=== PATIENT | male | born 1960 | race Caucasian/White ===

== ENCOUNTER 2017-07-24 14:57 | Outpatient (CLI) | payer OTHER ==
[2017-07-24] MEDS ORDERED: IOPAMIDOL-300 100 ML VIAL ONE (15:17)
[2017-07-24] MEDS ORDERED: IOPAMIDOL-300 100 ML VIAL IVP ONE (15:56)
--- NOTE | 2017-07-25 11:28 | CT Report ---
ABDOMEN AND PELVIS CT WITH AND WITHOUT CONTRAST: 07/24/2017 COMPARISON: No comparison. INDICATION: Painful bladder spasm. TECHNIQUE: Axial imaging of the abdomen and pelvis was performed with coronal and sagittal reformats. 100 mL Omnipaque Isovue-300. FINDINGS: There is a 4 mm solid pulmonary nodule of the left lower lobe. There are two 2 mm nodules of the left lower lobe. There is a 6 mm low attenuating focus in the left lobe of the liver, too small to characterize. The liver, spleen, pancreas, and adrenal glands appear otherwise unremarkable. No evidence of urologic stones. No contour deforming masses. Normal appearing intravenous pyelography via CT. No bladder masses. No abnormality of bowel. No abnormal fluid collection or free air. Vessels appear unremarkable. There are no bone lesions. IMPRESSION: 1. THERE ARE NO CT FINDINGS TO SUGGEST A CAUSE OF THE PATIENT'S SYMPTOMS. 2. PULMONARY NODULES MEASURE UP TO 4 MM. NO FURTHER FOLLOWUP IS REQUIRED IN A LOW RISK PATIENT. IF THE PATIENT HAS RISK FACTORS, FOLLOWUP IS SUGGESTED IN 6-[address] DOSE REDUCTION STATEMENT In accordance with CT protocol optimization, one or more of the following dose reduction techniques were utilized for this exam: automated exposure control, adjustment of mA and/or KV based on patient size, or use of iterative reconstructive technique. TD: 07/25/2017 11:27 MTDD
== END 2017-07-24 14:58 | disposition home or self-care (01) ==
LOC: DI 14:57
PROVIDERS: ATTEND Family Medicine
DX: R39.89 Other symptoms and signs involving the genitourinary system (principal); R91.8 Other nonspecific abnormal finding of lung field
CPT/HCPCS: 74178; Q9967

== ENCOUNTER 2017-09-16 10:43 | Day surgery (SDC) | payer OTHER ==
[2017-09-16] MEDS ORDERED: LACTATED RINGERS 1,000 ML IV ONE ×3 (10:51→17:15)
[2017-09-16] MEDS ORDERED: ceFAZolin 2 GM/50 ML 2 GM/50 ML BAG IV ONE (11:02)
[2017-09-16] MEDS ORDERED: BUPIVACAINE 0.5% PF 30 ML VIAL INFIL ONE ×2 (14:19→16:56)
[2017-09-16] MEDS ORDERED: BUPIVACAINE 0.5% PF 30 ML VIAL ONE (16:58)
[2017-09-16] MEDS ORDERED: BUPIVACAINE 0.5%-EPI 1:200000 PF 30 ML VIAL ONE (16:58)
[2017-09-16] MEDS ORDERED: fentaNYL 100 MCG/2 ML VIAL IVP ONE (17:10)
[2017-09-16] MEDS ORDERED: PROPOFOL 200 MG/20 ML VIAL IVP ONE (17:10)
[2017-09-16] MEDS ORDERED: ROCURONIUM 50 MG/5 ML VIAL IVP ONE (17:10)
[2017-09-16] MEDS ORDERED: ONDANSETRON 4 MG/2 ML VIAL IVP ONE (17:10)
[2017-09-16] MEDS ORDERED: ePHEDrine 50 MG/ML VIAL IVP ONE (17:10)
[2017-09-16] MEDS ORDERED: GLYCOPYRROLATE 1 MG/5 ML VIAL IVP ONE (17:10)
[2017-09-16] MEDS ORDERED: KETOROLAC 30 MG/ML VIAL IVP ONE (17:10)
[2017-09-16] MEDS ORDERED: MIDAZOLAM 2 MG/2 ML VIAL IVP ONE (17:10)
[2017-09-16] MEDS ORDERED: NEOSTIGMINE 1 MG/1 ML 10 ML MDV IVP ONE (17:10)
--- NOTE | 2017-09-16 17:49 | OPERATIVE REPORT ---
Operative Report - General Procedure Date: 09/16/17 Planned Procedure: LEFT TEP inguinal herniorrhaphy Pre-Op Diagnosis: LEFT inguinal hernia Procedure Performed: LEFT TEP inguinal herniorrhaphy Post Op Diagnosis: Indirect LEFT inguinal hernia - Procedure Note Primary Surgeon: Jf Serrato MD Anesthesia Provider: Catalino John CRNA Anesthesia Technique: General LMA, Local (30 mL 1/2% marcaine) IV Fluids (mL): 1,200 Estimated Blood Loss (mL): 5 Urine Output (mL): 100 Complications: None. - Other Other Information/Narrative: OPERATIVE DESCRIPTION/REPORT: After verbal and written informed consent was obtained detailing the risks of infection, bleeding requiring transfusion with its risks, nerve injury, and , and after I met with the patient confirming the surgery and the site of the surgery, the patient was brought to the operative suite and placed supine on the operating table. Great care was taken to avoid pressure points to prevent pressure necrosis or nerve injury. Monitoring devices were applied along with TEDs and pneumatic compressive stockings (to prevent DVT). The patient received preoperative antibiotics for surgical prophylaxis. Manjula John sedated and induced general anesthesia and provided anesthesia care for the entirety of the case. The patient was prepped and draped in the usual sterile manner. With the patient draped my initials were clearly visible. A "time in" then confirmed that the patient was identified with 3 identifiers ( name, date and medical record number), the history and physical was in the chart, the signed consent confirming the procedure was in the chart, the patient was in the correct position, the aforementioned prophylactic measures were in place or given, we had the correct personnel and equipment to complete the procedure and that anesthesia, surgery and nursing were given an opportunity to express any concerns. With the agreement of everyone in the room , we proceeded with the operation. A transverse skin incision was made below the umbilicus to a length of approximately 3 cm. The incision was carried through the subcutaneous tissue. Bleeders were cauterized. The right rectus sheath was identified and incised lateral to the midline. The preperitoneal space was then developed following insertion of a Spacemaker balloon, which was inflated under direct vision. Following removal of the Spacemaker balloon, a #10 trocar was placed in the preperitoneal space and the preperitoneal space was insufflated with CO2 to a steady state pressure of 12 mmHg. A 10 mm 30 degree laparoscope was inserted in the preperitoneal space. Two #5 trocars were placed 5 cm below the umbilicus and just medial to the epigastric vessels bilaterally under direct vision and without incident. Landmarks including symphysis pubis, right and left Reinier ligaments and right and left inferior epigastric vessels were identified. Dissection was then continued lateral to the transverse abdominis muscle bilaterally. The internal ring was then explored for the presence of the indirect hernia sac and this was reduced under direct vision with traction and counter-traction. Exploration of the medial space did not show a medial defect suggesting no direct hernia. A Covidien Progrip LEFT anatomical mesh ([id number]#[id number], Ref# [id number], Use by 2020-04-10) was obtained and placed. The mesh covered the internal ring as well as any potential direct hernia site. No tacking was required. Please note that upon visual examination no definite direct or indirect hernia was seen on the right side. 10 mL of 1/2% Marcaine was injected into the preperitoneal space and then remaining 20 mL at all three incisions. The preperitoneal space was then deflated and during the deflation the mesh was watched to ensure that it was sandwiched nicely in place and did not change position. All trocars were withdrawn. The defect in the rectus sheath was closed with a [id number] 0 Vicryl suture. The skin incisions were closed with subcuticular 4-0 Monocryl suture. The prep was washed off and Mastisol and Steristrips were applied at all the incisions. At this point a time out was performed that confirmed that all the counts were correct, the procedure that was performed, the blood loss, the IV fluids administered, and the patients condition. The prep was washed off and Benzoin and Steristrips were applied. Having tolerated the procedure well, the patient was subsequently extubated and taken to recovery room in good and stable condition.
[2017-09-16] MEDS ORDERED: fentaNYL 100 MCG/2 ML VIAL ONE (18:04)
[2017-09-16] MEDS ORDERED: oxyCOD/ACETAMIN 5 MG/325 MG TABLET PO ONE (18:53)
[2017-09-16 18:57] VITALS: BP 115/78
== END 2017-09-16 10:44 | disposition home or self-care (01) ==
LOC: SDS 10:43
PROVIDERS: ATTEND Surgery
PROC: 0YU64JZ Supplement Left Inguinal Region with Synthetic Substitute, Percutaneous Endoscopic Approach (ICD-10-PCS; principal; 2017-09-16 12:00)
DX: K40.90 Unilateral inguinal hernia, without obstruction or gangrene, not specified as recurrent (principal)
CPT/HCPCS: 49650; A9270; J0690; J7120

== ENCOUNTER 2018-06-04 07:43 | Outpatient (CLI) | payer OTHER ==
--- NOTE | 2018-06-04 14:21 | MRI Report ---
Reason: LOW BACK PAIN Procedure Date: 06/04/2018 Accession Number: [id number] / [id number] Procedure: MRI - Lumbar Spine W/O CPT Code: FULL RESULT: EXAM: MRI LUMBAR SPINE WITHOUT CONTRAST EXAM DATE: 06/04/2018 08:22 AM. CLINICAL HISTORY: LOW BACK PAIN. COMPARISON: IVP 07/24/2017 3:49 PM. TECHNIQUE: Multiplanar, multisequence T1-weighted and fluid-sensitive sequences of the lumbar spine from T12 to S1 without contrast. Other: None. FINDINGS: Spinal Canal: The conus terminates at L1. The conus medullaris and cauda equina are unremarkable. Alignment: No scoliosis or spondylolisthesis. Bone Marrow: Five [id number] lumbar vertebral bodies are assumed. Previous partial laminectomy and partial right facetectomy at L5-S1. Mild chronic L1 superior endplate compression fracture without associated marrow edema. L1 vertebral body hemangioma 1.5 cm in diameter. 1.2 cm intermediate T1 and T2 signal lesion at the right inferior L4 level with deficiency at the endplate. Surrounding severe marrow edema with loss of T1 fatty signal involving the right half of the mid and lower portions of the vertebral body. Possible acute Schmorl's node. Disk Levels/Facets: T12-L1: Unremarkable. L1-L2: Unremarkable. L2-L3: Slight annular disk bulge. No significant stenosis. L3-L4: Slight annular disk bulge and mild facet arthropathy. Mild inferior foraminal narrowing. L4-L5: Mild disk height loss and dehydration. Annular disk bulge with small central protrusion and annular fissure. Mild facet arthropathy. Mild effacement of the thecal sac. Mild bilateral foraminal stenosis. L5-S1: Moderate disk height loss and dehydration. Annular disk bulge. Small foraminal osteophytes. Moderate left facet arthropathy. Mild bilateral foraminal stenosis. Musculature: Some asymmetric atrophy at the inferior right paraspinous musculature. Other: The partially visualized retroperitoneum is unremarkable. IMPRESSION: 1. Severe marrow edema involving the mid and lower right half of the L4 vertebral body with associated inferior endplate deformity. Suspicious for acute Schmorl's node. 2. Mild bilateral foraminal stenosis at L4-L5 and L5-S1. 3. Mild chronic-appearing superior endplate compression deformity at L1. Comment: The following findings are so common in adults without low back pain that while we report their presence, they must be interpreted with caution and in the context of the clinical situation. (Reference Ciscok et al, Spine 2001) Prevalence of findings in patients without low back pain: Disk degeneration (any evidence): 92% Disk desiccation/T2 signal loss: 83% Disk height loss: 56% Disk bulge: 64% Disk protrusion: 32% Annular tear/high intensity zone: 38% RADIA
== END 2018-06-04 07:44 | disposition home or self-care (01) ==
LOC: DI 07:43
PROVIDERS: ATTEND Physical Medicine & Rehabilitation
DX: M51.36 Other intervertebral disc degeneration, lumbar region (principal); M48.061 Spinal stenosis, lumbar region without neurogenic claudication; M47.9 Spondylosis, unspecified; M51.37 Other intervertebral disc degeneration, lumbosacral region; M48.07 Spinal stenosis, lumbosacral region; M48.56XA Collapsed vertebra, not elsewhere classified, lumbar region, initial encounter for fracture
CPT/HCPCS: 72148

== ENCOUNTER 2019-07-06 09:15 | Outpatient (CLI) | payer OTHER ==
[2019-07-06 09:57] VITALS: BP 139/95
--- NOTE | 2019-07-06 09:57 | SLEEP CARE CONSULTATION ---
Information from patient questionnaire entered by Kitty Ribera. I have reviewed and concur with the information entered by Kitty Ribera. This document represents the service I personally performed and the decisions made by me, Courtney Kimball MD, [facility]. History of Present Illness Reason for Visit: New patient Chief Complaint: reports: Unrefreshed sleep, Excessive daytime sleepiness, Observed pauses in breathing Duration of Symptoms: 5+ years Usual bedtime: 2200 Time it takes to fall asleep: 10 minutes Snores at night: Yes (if sleep on back) Observed to quit breathing while asleep: No Sleeps alone due to snoring: No Number of times waking at night: 5-8 Reasons for waking at night: reports: Choking, Gasping for air Toss, Turn, or Twitch while sleeping: Yes Recalls having dreams: Yes Usually gets out of bed at: 0645 Feels refreshed in the morning: No Morning headache: Yes Sleepy or fatigued during the day: Yes Ever fallen asleep while driving: Yes Dreams during day naps: No Prior sleep studies: No Additional HPI information: I had the pleasure of seeing Mr. Melo today regarding the possibility of him having a sleep disorder. As you know, he is a 59 year old gentleman who complains of unrefreshed sleep, excessive daytime sleepiness, and witnessed apneas. The patient tells me that he normally goes to bed around 10 pm, and it takes him approximately 10 minutes to fall asleep. He has been told that he snores loudly and irregularly at night. He has also been observed to stop breathing in his sleep. His can still sleep in the same bed. He can recall waking up on the average of 5 - 8 times during the night. Most of the time he wakes up because of his own snoring, choking, and having to gasp for air, especially on his back. There is a lot of tossing and turning in his sleep. No somniloquy (sleep talking) or somnambulism (sleep walking). Generally he can recall having dreams. In the morning he usually gets up out of the bed around 6:45 a.m. not feeling refreshed nor rested. He usually does have a morning headache that requires medication. During the day he complains of feeling sleepy and fatigued. His score on [place] Sleepiness Scale is 18 out of 24. He has fallen asleep while driving. He usually does not take naps during the day. Upon falling asleep during the day he denies having vivid dreams. He has never had sleep paralysis, experienced cataplexy or symptoms of restless leg syndrome. He denies having impaired concentration during the day. Subjective Initial [place] Sleepiness Scale score: 18 Past Medical History Past Medical History: reports: Other (migraines) Social History The patient's occupation is a [employer]. Patient is and lives in [place]. Have you smoked in the past 12 months: No Alcohol use: Yes Alcohol amount and frequency: 1-2, 1-2 times/week Caffeine use: Yes Caffeine amount and frequency: each morning Allergies and Home Medications Drug allergies reviewed: Yes (sulfa drugs) Home medication list reviewed: Yes (rizatriptan, oxycodone, and ibuprofen) Review of Systems Cardiovascular: denies: high blood pressure, palpitations, chest pain, irregular heart rate or pulse, leg or foot swelling, have to sleep sitting up, other Respiratory: denies: shortness of breath, wheeze, sputum production, chronic cough, other Gastrointestinal: denies: heartburn, difficulty swallowing, nausea, vomitting, diarrhea, abdominal pain, other Urinary: reports: frequency Neurological: reports: headaches. denies: seizure, head trauma, disorientation, speech dysfunction, gait or balance problems, fainting or unconsciousness, other Psychiatric: denies: Attention Deficit Hyperactivity, anxiety, depression, mood disorder, claustrophobia, other Ear/Nose/Throat: reports: wisdom teeth removed. denies: nasal congestion, sinus problems, nose bleeds, dry mouth/throat, hoarseness, injury to nose, tonsillectomy, other Endocrine: denies: thyroid disease, history of goiter, sluggishness, too hot or cold, excessive thirst, increased appetite, increased urination, unexplained weakness, other Musculoskeletal: reports: neck pain, back pain Immunologic: denies: sneezing, rash, itching, allergies to food or environment, other Physical Exam Vital signs obtained and entered by: Dr. Kimball Blood Pressure: 139/95 Cuff size: regular Heart Rate: 62 O2 Saturation: 98 Height: 5 ft 9 in Weight: 170 lb Body Mass Index: 25.1 BMI Classification: Overweight Neck circumference: 15.5 HEENT: No craniofacial malformation Nostrils: patent to airflow Turbinates: normal Septum: midline Mouth and throat: narrow oropharynx Soft palate: long Hard palate: normal Uvula: normal, long Uvula visualization: 50% Mallampati Class II Tongue: normal in size Tonsils: small Chin and jaw: normal size and position Neck: normal w/o lymphadenopathy or thyromegaly Heart: regular rate and rhythm Lungs: clear bilaterally Abdomen: soft, non-tender Extremities: no edema or clubbing Neurologic: intact, no focal deficits Impression and Plan IMPRESSION: 1. Obstructive Sleep Apnea-Hypopnea Syndrome, as suggested by history of loud and irregular snoring, observed cessation of breath while asleep, frequent awakenings during the night, unrefreshed sleep, morning headache, and daytime hypersomnolence. Narrow oropharynx is a common predisposing factor for obstructive sleep apnea-hypopnea syndrome. Pathophysiology of sleep-disordered breathing was discussed. I recommend proceeding to polysomnography to confirm the diagnosis and to assess severity. If he has significant sleep disordered breathing, a manual CPAP titration study will also be performed to find the optimal treatment pressure. I informed the patient of what the sleep studies involve and after some discussion, he agreed to proceed. Plan: 1. Schedule in-laboratory polysomnography + manual CPAP titration study 2. Avoid long distance driving or when feeling sleepy. 3. Avoid alcohol, sedative and muscle relaxant around bedtime. 4. Return in 1 to 2 weeks after the study to discuss results and initiate therapy. I spent 100% of this visit face to face with the patient with greater than 50% of this was spent time counseling the patient and coordination of care.
== END 2019-07-06 09:16 | disposition home or self-care (01) ==
LOC: SC 09:15
PROVIDERS: ATTEND Internal Medicine Pulmonary Disease
DX: G47.10 Hypersomnia, unspecified (principal); R06.83 Snoring; R06.81 Apnea, not elsewhere classified; G47.8 Other sleep disorders; R51 Headache; E66.3 Overweight; Z68.25 Body mass index [BMI] 25.0-25.9, adult
CPT/HCPCS: 99203; 99212

== ENCOUNTER 2019-08-03 21:26 | Outpatient (CLI) | payer OTHER | END 2019-08-03 21:27 | disposition home or self-care (01) | LOC: SC 21:26 | PROVIDERS: ATTEND Internal Medicine Pulmonary Disease | DX: G47.10 Hypersomnia, unspecified (principal); G47.8 Other sleep disorders; R06.81 Apnea, not elsewhere classified; R06.83 Snoring | CPT/HCPCS: 95810 ==

== ENCOUNTER 2019-08-31 17:01 | Outpatient (CLI) | payer OTHER ==
--- NOTE | 2019-08-31 14:06 | SLEEP CARE CONSULTATION ---
Information from patient questionnaire entered by Kitty Ribera. I have reviewed and concur with the information entered by Kitty Ribera. This document represents the service I personally performed and the decisions made by me, Courtney Kimball MD, [facility]. History of Present Illness Service Date and Time: 08/31/2019 1400 Initial [place] Sleepiness Scale score: 18 Additional HPI information: To minimize the risk of COVID-19 exposure, the patient has requested and consented to this video telemedicine visit. The patient also agrees to having his insurance billed. HPI: Mr. Melo was called for a follow up of the sleep study he had on 08/03/2019. The polysomnography showed that the patient had normal sleep efficiency. The sleep architecture was abnormal for sleep fragmentation and reduced amount of time spent in slow wave sleep (N3). Respiratory monitoring showed no significant sleep disordered breathing (AHI = 3.6) or hypoxia (stacia oxygen saturation of 91%). The respiratory events occurred almost exclusively during supine sleep (supine AHI = 6.8; non-supine = 1.83). Snore was light to moderate in intensity. There was no significant periodic leg movement of sleep. Cardiac rhythm was normal sinus rhythm without significant arrhythmia. No abnormal behavior (parasomnia) observed during the night. The patient was informed of these findings. I explained to him that the sleep study was normal. Allergies and Home Medications Drug allergies reviewed: Yes Home medication list reviewed: Yes Review of Systems Review of systems same as previous: Yes Physical Exam Height: 5 ft 9 in Impression and Plan IMPRESSION: 1. Primary Snore (ICD-10 R06.83), light to moderate, but no significant sleep disordered breathing except when the patient slept supine. The patient is recommended to avoid sleeping supine. He would also like to have uvular removed because it is elongated and causes some choking at night. PLAN: 1. See an ENT regarding uvulectomy. 2. Avoid sleeping supine. 4. Return to the sleep clinic on as needed basis. Visit Type: Telehealth Video Video Type: [employer] Location of Provider: Home Patient agrees and consents to this telehealth visit type: Yes Time Spent with Patient (minutes): 15 Provider Statement: I spent 100% of the Telehealth Video Call with the patient with greater than 50% spent counseling the patient and coordination of care.
== END 2019-08-31 17:02 | disposition home or self-care (01) ==
LOC: SC 17:01
PROVIDERS: ATTEND Internal Medicine Pulmonary Disease
DX: R06.83 Snoring (principal); G47.10 Hypersomnia, unspecified; R06.81 Apnea, not elsewhere classified; G47.8 Other sleep disorders

== ENCOUNTER 2020-08-23 09:18 | Outpatient (CLI) | payer OTHER ==
--- NOTE | 2020-08-23 09:59 | XRAY Report ---
PROCEDURE: Hand 3 View RT INDICATIONS: CRUSHING INJURY OF R HAND TECHNIQUE: 3 views of the hand(s) acquired. COMPARISON: None FINDINGS: Bones: No fractures or dislocations. Mild osteoarthritic changes along radial aspect of right wrist and right hand is seen. No suspicious bony lesions. Soft tissues: No suspicious soft tissue calcifications. IMPRESSION: No gross acute right hand fracture or dislocation. 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 Reviewed by: Singh Robert MD on 08/23/2020 8:58 AM FREYA Approved by: Singh Robert MD on 08/23/2020 8:58 AM FREYA Station ID: [id number]
== END 2020-08-23 23:59 | disposition home or self-care (01) ==
LOC: DI.N 09:18
PROVIDERS: ATTEND Family Medicine
DX: S67.21XA Crushing injury of right hand, initial encounter (principal); M19.041 Primary osteoarthritis, right hand

== ENCOUNTER 2020-08-31 07:00 | Outpatient (CLI) | payer OTHER ==
--- NOTE | 2020-08-31 11:17 | XRAY Report ---
PROCEDURE: Ribs w/PA Chest RT INDICATIONS: RT ANTERIOR CHEST WALL PAIN TECHNIQUE: 4 views of the right ribs were acquired, along with a single view chest. COMPARISON: None FINDINGS: Surgical changes and devices: None. Anterolateral right 9thand 10th rib fracture, minimally displaced. Lungs and pleura: No pleural effusions or pneumothorax. Lungs appear clear. Mediastinum: Mediastinal contours appear normal. Heart size is normal. IMPRESSION: Right 9th and 10th anterolateral rib fractures Reviewed by: Eder Perea MD on 08/31/2020 11:15 AM PDT Approved by: Eder Perea MD on 08/31/2020 11:15 AM PDT Station ID: [id number]
== END 2020-08-31 23:59 | disposition home or self-care (01) ==
LOC: DI.N 07:00
PROVIDERS: ATTEND Emergency Medicine
DX: S22.41XA Multiple fractures of ribs, right side, initial encounter for closed fracture (principal)

== ENCOUNTER 2020-09-11 20:43 | Emergency (ER) | payer OTHER ==
--- OUTSIDE RECORDS SUMMARY | 2020-09-11 20:47 | EXTERNAL MEDICAL SUMMARY RPT | Continuity of Care Document ---
:1960 Demographics Phone Unavailable Preferred Language Unknown Marital Status Unknown Judaism Affiliation Unknown Race Unknown Ethnic Group Unknown Author Organization [facility] Address [address] [place] [address] Phone Care Team Providers Name Role Phone DO Unavailable Unavailable MD Unavailable Unavailable Problems date description facility 20200831 RIBS UNILATERAL W/ PA CHEST MIN All 20200831 Contusion of right front wall of thorax , initial encounter All 20200831 Contusion of rib All 20200823 Tobacco smoking status NHIS All 20200823 Health-related behavior All 20200823 HAND MIN 3 VIEW All 20200823 Details of drug misuse behavior All 20200823 Crushing injury of right hand, initial encounter All 20200823 Alcohol intake All 20200823 Tobacco use and exposure All 20200823 Never smoker All 20200823 Exercise All 20200823 Crush injury of right hand All 20200823 Alcohol use All Vital Signs date measurement value source 20200823 weight_standard 170 lb 20200823 weight_metric 77.11 kg 20200823 temperature_standard 97.9 F 20200823 temperature_metric 36.61 C 20200823 respiration_rate 16 /min 20200823 height_standard 69 in 20200823 height_metric 175.26 cm 20200823 heart_rate 57 /min 20200823 BP_systolic 131 mm[Hg] 20200823 BP_diastolic 87 mm[Hg] 20200823 BMI 25.20 kg/m2 20200831 weight_standard 173.8 lb 20200831 weight_metric 78.83 kg 20200831 temperature_standard 98.3 F 20200831 temperature_metric 36.83 C 20200831 respiration_rate 14 /min 20200831 height_standard 69 in 20200831 height_metric 175.26 cm 20200831 heart_rate 63 /min 20200831 BP_systolic 146 mm[Hg] 20200831 BP_diastolic 88 mm[Hg] 20200831 BMI 25.76 kg/m2 20200831 weight_standard 173.8 lb 20200831 weight_metric 78.83 kg 20200831 temperature_standard 98.3 F 20200831 temperature_metric 36.83 C 20200831 respiration_rate 14 /min 20200831 height_standard 69 in 20200831 height_metric 175.26 cm 20200831 heart_rate 63 /min 20200831 BP_systolic 146 mm[Hg] 20200831 BP_diastolic 88 mm[Hg] 20200831 BMI 25.76 kg/m2
[2020-09-11 20:49] VITALS: BP 140/90
--- OUTSIDE RECORDS SUMMARY | 2020-09-11 20:58 | EXTERNAL MEDICAL SUMMARY RPT | Continuity of Care Document ---
:1960 Demographics Phone Unavailable Preferred Language Unknown Marital Status Unknown Latter Day Affiliation Unknown Race Unknown Ethnic Group Unknown Author Organization [facility] Address [address] [place] [address] Phone Care Team Providers Name Role Phone Foreign MOSES, Unavailable Unavailable DO, Denisa Zarco, Unavailable Unavailable Problems date description facility 20200831 [...]
--- NOTE | 2020-09-11 21:36 | ED Physician Documentation ---
PD HPI OPHTHO - Stated complaint Stated Complaint: RT EYE INJ - Chief complaint Chief Complaint: Heent - History obtained from History obtained from: Patient - History of Present Illness Timing - onset: How many hours ago (1-2), Today Timing - duration: Hours (1-2) Timing - details: Abrupt onset (Patient was at [employer] drill practice this afternoon/evening and was doing some heavy lifting. He wore protective eyewear when working with power tools. No noted injury to the eye. Another person noted his eye looking red and his dept captain told him to have checked at ER. No pain/vision change.) Location: Right Quality / character: No: Itching, Burning, Aching Associated symptoms: Redness (on medial aspect of the corneal area. No affect on visual axis/iris.). No: FB sensation, Decreased vision Contributing factors: No: Recent URI, FB, Blunt trauma, Wears contacts Similar symptoms before: Has not had sx before Recently seen: Not recently seen Review of Systems Constitutional: denies: Fever, Chills Eyes: denies: Loss of vision, Decreased vision, Photophobia, Discharge, Irritation Nose: denies: Rhinorrhea / runny nose, Congestion Throat: denies: Sore throat Respiratory: denies: Dyspnea, Cough Skin: denies: Rash, Lesions PD PAST MEDICAL HISTORY - Past Medical History Past Medical History: Yes Cardiovascular: High cholesterol Respiratory: None Endocrine/Autoimmune: None GI: None : Other HEENT: Chronic vision loss, Chronic hearing loss, Dental implants Psych: None Musculoskeletal: None Derm: None - Past Surgical History Past Surgical History: Yes General: Colonoscopy Ortho: Spine surgery - Present Medications Home Medications: Ambulatory Orders Medication Instructions Recorded Confirmed Rizatriptan Benzoate [Rizatriptan] 10 mg PO BID PRN 08/29/14 09/16/17 Topiramate [Topamax] 100 mg PO QD 09/12/17 09/16/17 Tramadol HCl 50 mg PO BID PRN 09/12/17 09/12/17 - Allergies Allergies/Adverse Reactions: Allergies Allergy/AdvReac Type Severity Reaction Status Date / Time Sulfa (Sulfonamide Allergy Rash Verified 09/11/20 20:46 Antibiotics) - Social History Does the pt smoke?: No Smoking Status: Never smoker Does the pt drink ETOH?: No Does the pt have substance abuse?: No - Immunizations Immunizations are current?: Yes - POLST Patient has POLST: No PD ED PE NORMAL - Vitals Vital signs reviewed: Yes - General General: Alert and oriented X 3, No acute distress, Well developed/nourished - HEENT HEENT: PERRL, EOMI PD ED PE EXPANDED - Eyes Eyes: PERRL, EOMI, Subconj hemorrhage (medial right eye from about 2-6 o'clock area. ), Anterior chambers clear, Normal fundi. No: Exudate, Corneal FB, Fluorescein uptake, Hyphema Results - Vitals Vitals: Vital Signs - 24 hr 09/11/20 20:46 Temperature 36.5 C Heart Rate 67 Respiratory 16 Rate Blood Pressure 140/90 H O2 Saturation 97 Oxygen O2 Source Room air PD MEDICAL DECISION MAKING - ED course Complexity details: considered differential (painless subconjunctival hemorrhage without direct injury; presume resulted from strenuous lifting earlier. Otherwise normal eye exam. ), d/w patient Departure - Departure Disposition: 01 Home, Self Care Clinical Impression: Subconjunctival hemorrhage Qualifiers: Laterality: right Qualified Code(s): H11.31 - Conjunctival hemorrhage, right eye Condition: Stable Record reviewed to determine appropriate education?: Yes Instructions: ED Eye Injury Subconj Hemorrhage Comments: The subconjunctival hemorrhage that you have is benign and should absorb slowly over the next several days to week. The small blood vessel in that layer likely popped open when you are lifting heavy during your activity. No signs of injury on the surface of the eye. Discharge Date/Time: 09/11/20 21:54
== END 2020-09-11 21:54 | disposition home or self-care (01) ==
LOC: ED 20:43
DX: H11.31 Conjunctival hemorrhage, right eye (principal)
CPT/HCPCS: 99281; 99283

== ENCOUNTER 2023-04-11 11:27 | Outpatient (CLI) | payer OTHER ==
[2023-04-11 18:15] LABS: ALBUMIN 4.3 g/dL (3.2-5.5); ALKALINE PHOSPHATASE 42 IU/L (42-121); ALT ALANINE AMINOTRANSFERASE 13 IU/L (10-60); AST ASPARTATE AMINOTRANSFERASE 17 IU/L (10-42); BILIRUBIN,DIRECT < 0.10 mg/dL (0.03-0.18); BILIRUBIN,TOTAL 0.4 mg/dL (0.2-1.0); TOTAL PROTEIN 6.5 g/dL (6.4-8.9)
== END 2023-04-11 11:28 | disposition home or self-care (01) ==
LOC: LAB.N 11:27
PROVIDERS: ATTEND Physician Assistant
DX: Z79.899 Other long term (current) drug therapy (principal)
CPT/HCPCS: 36415; 80076

== ENCOUNTER 2023-07-23 11:50 | Outpatient (CLI) | payer OTHER ==
--- NOTE | 2023-07-23 12:37 | XRAY Report ---
PROCEDURE: Elbow 3+V RT INDICATIONS: ELBOW JOINT PAIN, RIGHT TECHNIQUE: 3 views of the elbow were acquired. COMPARISON: None. FINDINGS: Bones: No fractures or dislocations. No suspicious bony lesions. Enthesophyte along the posterior ulna. Soft tissues: No effusion. No suspicious soft tissue calcifications or masses. Calcifications proje cting over the joint capsule. IMPRESSION: No acute bony abnormality. Round calcifications projecting of the elbow joint capsule, presumably degenerative. Reviewed by: Main Valdes MD on 07/23/2023 12:36 PM PDT Approved by: Main Valdes MD on 07/23/2023 12:36 PM PDT Station ID: [id number]
== END 2023-07-23 11:51 | disposition home or self-care (01) ==
LOC: DI.N 11:50
PROVIDERS: ATTEND Physician Assistant
DX: M77.8 Other enthesopathies, not elsewhere classified (principal)